=== PATIENT | male | born 1955 ===

== ENCOUNTER → 2021-12-12 09:36 | Outpatient (BNVA) | payer MEDICARE, MEDICAID, SELFPAY | PROVIDERS: Visit Provider Psychiatry & Neurology Neurology | DX: F10.10 Alcohol abuse, uncomplicated (principal); G20 Parkinson's disease; G62.9 Polyneuropathy, unspecified; G47.00 Insomnia, unspecified; K59.00 Constipation, unspecified; R35.1 Nocturia | CPT/HCPCS: 99214 ==

== ENCOUNTER → 2022-06-05 09:48 | Outpatient (BNVA) | payer MEDICARE, MEDICAID, SELFPAY | PROVIDERS: Visit Provider Psychiatry & Neurology Neurology | DX: G20 Parkinson's disease (principal); G62.9 Polyneuropathy, unspecified; K59.00 Constipation, unspecified; G47.00 Insomnia, unspecified; R35.1 Nocturia | CPT/HCPCS: 99214 ==

== ENCOUNTER → 2022-12-02 09:05 | Outpatient (BNVA) | payer MEDICARE, MEDICAID, SELFPAY | PROVIDERS: Visit Provider Psychiatry & Neurology Neurology | DX: G20.A1 Parkinson's disease without dyskinesia, without mention of fluctuations (principal); G62.9 Polyneuropathy, unspecified; G47.00 Insomnia, unspecified; K59.00 Constipation, unspecified; R35.1 Nocturia; I10 Essential (primary) hypertension | CPT/HCPCS: 99214 ==